=== PATIENT | male | born 1975 | race Caucasian/White ===

== ENCOUNTER 2019-01-18 19:07 | Emergency (ER) | payer OTHER ==
[~2019-01-18] VITALS: Ht 177.8 cm; Wt 87.1 kg
[2019-01-18] MEDS ORDERED: BACTRIM DS TAB1 EACH PO ×2 (19:22)
[2019-01-18 19:59] LABS: ABSOLUTE EOSINOPHILS 0.1 thou/uL (0.0-0.7); ABSOLUTE LYMPHOCYTES 1.1 thou/uL (0.8-5.3); ABSOLUTE MONOCYTES 0.4 thou/uL (0.0-1.2); BASOPHILS 0.6 %; EOSINOPHILS 1.9 %; HEMATOCRIT 38.8 % (42.0-52.0); HEMOGLOBIN 12.8 gm/dL (14.0-18.0); LYMPHOCYTES 29.9 %; MCHC 33.1 g/dL (28.0-37.0); MCV 81.5 fL (80.0-100.0); MONOCYTES 11.9 %; MPV 7.2 fl. (7.2-11.1); NUCLEATED RBCS 0 /100WBC; PLATELET COUNT* 156 thou/uL (150-400); POLYS 55.7 %; RBC 4.76 mil/uL (4.50-6.00); RDW-CV 14.3 % (10.5-14.5); WBC 3.5 thou/uL (4.0-11.0)
[2019-01-18 20:09] LABS: PROTIME 10.7 Seconds (9.20-11.50)
[2019-01-18 20:12] LABS: ANION GAP 12 mmol/L (7-16); BUN 12 mg/dL (7-18); CALCIUM 8.3 mg/dL (8.5-10.1); CHLORIDE 96 mmol/L (98-107); CO2 23 mmol/L (21-32); CREATININE 1.2 mg/dL (0.6-1.3); GLUCOSE 79 mg/dL (70-99); POTASSIUM 4.6 mmol/L (3.5-5.1); SODIUM 131 mmol/L (136-145)
[2019-01-18 20:19] LABS: ALKALINE PHOSPHATASE 61 U/L (46-116); LIPASE 150 U/L (73-393); NT-PRO BRAIN NAT PEPTIDE 39 pg/mL (<300); SGOT 38 U/L (15-37); SGPT 18 U/L (30-65); TOTAL BILIRUBIN 0.6 mg/dL (<0.1-1.0); TOTAL PROTEIN 9.3 g/dL (6.4-8.2); TROPONIN-I LEVEL <0.06 ng/mL (<0.06)
[2019-01-18 20:58] LABS: URINE BLOOD NEGATIVE (Negative); URINE CLARITY CLEAR; URINE COLOR YELLOW; URINE GLUCOSE-RANDOM NEGATIVE (Negative); URINE LEUKOCYTES-REFLEX NEGATIVE (Negative); URINE NITRITE-REFLEX NEGATIVE (Negative); URINE PROTEIN TRACE (Negative); URINE SPECIFIC GRAVITY >= 1.030 (1.005-1.030)
[2019-01-18 21:01] LABS: URINE BILIRUBIN 2+ (Negative); URINE KETONES 3+ (Negative)
[2019-01-18 21:13] LABS: AMP/METHAMP POSITIVE (Negative); BARBITURATES Negative (Negative); BENZODIAZEPINES Negative (Negative); COCAINE Negative (Negative); METHADONE Negative (Negative); OPIATES Negative (Negative); PCP Negative (Negative); THC Negative (Negative)
[2019-01-18] MEDS ORDERED: ATENOLOL 50MG T50 MG PO ×2 (21:36)
[2019-01-18] MEDS ORDERED: METHIMAZOLE10 MG PO (21:36)
[2019-01-18 21:38] LABS: ICTOTEST (BILI CONFIRMATORY) Negative (Negative)
[2019-01-18 22:49] VITALS: BP 109/66
--- NOTE | 2019-01-19 16:49 | EKG ---
[place] [address] ELECTROCARDIOGRAM REPORT Name: RASHAUN DIMAS [id number] Admission: 01/18/19 Attend Phys: Discharge: 01/18/19 Date of : 77 Report #: [id number] THIS REPORT FOR: //name// [facility] ED Test Date: 2019-01-18 Test Time: 20:16:46 Pat Name: RASHAUN DIMAS Department: Room: Gender: M [employer]: : 1975 Requested By: Yeni Modi Order Number: [id number] MD: Jean Pierre Bautista Measurements Intervals [place] Rate: 104 P: 53 [place]: 134 QRS: 49 QRSD: 96 T: 23 QT: 328 QTc: 432 Interpretive Statements Sinus tachycardia ST elev, probable normal early repol pattern No previous ECG available for comparison Electronically Signed On 01-19-2019 16:49:03 CDT by Jean Pierre Bautista [email or web address] <ELECTRONICALLY SIGNED> By: Jean Pierre Bautista MD, [facility] 01/19/19 1649 15 15 Jean Pierre Bautista MD, FACC /EPI
[2019-01-23] MEDS ORDERED: HYDROXYZINE HCL25 M2 PO
== END 2019-01-18 23:25 | disposition home or self-care (01) ==
LOC: M.ERS 19:07
PROVIDERS: Emergency Medicine
DX: E03.9 Hypothyroidism, unspecified (principal); R11.2 Nausea with vomiting, unspecified; Z79.899 Other long term (current) drug therapy

== ENCOUNTER 2019-01-21 21:19 | Emergency (ER) | payer OTHER ==
[~2019-01-21] VITALS: Ht 177.8 cm; Wt 87.5 kg
[~2019-01-21 21:19] MED LIST: ATENOLOL 50MG T50 MG PO; BACTRIM DS TAB1 EACH PO; METHIMAZOLE10 MG PO
[2019-01-21 21:45] LABS: HEMATOCRIT 37.9 % (42.0-52.0); HEMOGLOBIN 12.3 gm/dL (14.0-18.0); MCH 26.5 pg (26.0-34.0); MCHC 32.4 g/dL (28.0-37.0); MCV 81.9 fL (80.0-100.0); MPV 7.6 fl. (7.2-11.1); NUCLEATED RBCS 0 /100WBC; PLATELET COUNT* 154 thou/uL (150-400); RBC 4.63 mil/uL (4.50-6.00); RDW-CV 14.1 % (10.5-14.5); WBC 4.3 thou/uL (4.0-11.0)
[2019-01-21 21:53] LABS: ANION GAP 10 mmol/L (7-16); BUN 13 mg/dL (7-18); CHLORIDE 96 mmol/L (98-107); CO2 28 mmol/L (21-32); CREATININE 1.2 mg/dL (0.6-1.3); GLUCOSE 103 mg/dL (70-99); POTASSIUM 3.5 mmol/L (3.5-5.1); SODIUM 134 mmol/L (136-145)
[2019-01-21 22:04] LABS: ALBUMIN 2.7 g/dL (3.4-5.0); ALKALINE PHOSPHATASE 54 U/L (46-116); NT-PRO BRAIN NAT PEPTIDE 232 pg/mL (<300); SGOT 53 U/L (15-37); SGPT 32 U/L (30-65); TOTAL BILIRUBIN 0.6 mg/dL (<0.1-1.0); TOTAL PROTEIN 8.6 g/dL (6.4-8.2); TROPONIN-I LEVEL <0.06 ng/mL (<0.06)
[2019-01-21 22:09] LABS: ABSOLUTE LYMPHOCYTES 1.3 thou/uL (0.8-5.3); ABSOLUTE NEUTROPHILS 2.9 thou/uL (1.6-8.1)
[2019-01-21 22:10] LABS: PLATELET ESTIMATE ADEQUATE
[2019-01-21 22:28] LABS: URINE BLOOD NEGATIVE (Negative); URINE CLARITY CLEAR; URINE COLOR YELLOW; URINE GLUCOSE-RANDOM NEGATIVE (Negative); URINE KETONES TRACE (Negative); URINE LEUKOCYTES-REFLEX NEGATIVE (Negative); URINE NITRITE-REFLEX NEGATIVE (Negative); URINE PROTEIN 1+ (Negative); URINE SPECIFIC GRAVITY 1.025 (1.005-1.030)
[2019-01-21 22:30] LABS: ICTOTEST (BILI CONFIRMATORY) Negative (Negative); URINE BILIRUBIN 2+ (Negative)
[2019-01-21 22:40] LABS: AMP/METHAMP Negative (Negative); BARBITURATES Negative (Negative); BENZODIAZEPINES Negative (Negative); COCAINE Negative (Negative); METHADONE Negative (Negative); OPIATES Negative (Negative); PCP Negative (Negative); THC Negative (Negative)
[2019-01-22] MEDS ORDERED: MEDROL DOSPAK21 TA1 PO (00:30)
[2019-01-22 02:12] VITALS: BP 95/50
--- NOTE | 2019-01-22 11:23 | EKG ---
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 : 1975 Requested By: Eveline Mendoza Order Number: [id number] MD: Arturo Dunn Measurements Intervals [place] Rate: 97 P: 43 [place]: 140 QRS: 51 QRSD: 95 T: 37 QT: 394 QTc: 501 Interpretive Statements Sinus rhythm Prolonged QT interval Compared to ECG 01/18/2019 20:16:46 Prolonged QT interval now present Sinus tachycardia no longer present ST (T wave) deviation no longer present Electronically Signed On 01-22-2019 11:23:33 CDT by Arturo Dunn [email or web address] <ELECTRONICALLY SIGNED> By: Arturo Dunn MD, [facility] 01/22/19 [id number] 33 Arturo Dunn MD, [facility] /EPI
[2019-01-23] MEDS ORDERED: HYDROXYZINE HCL25 M2 PO
== END 2019-01-22 01:35 | disposition left against medical advice (07) ==
LOC: M.ERS 21:19
PROVIDERS: Nurse Practitioner Family
DX: I95.9 Hypotension, unspecified (principal); T78.40XA Allergy, unspecified, initial encounter; E03.9 Hypothyroidism, unspecified

== ENCOUNTER 2019-01-23 21:29 | Emergency (ER) | payer OTHER ==
[~2019-01-23] VITALS: Ht 177.8 cm; Wt 87.1 kg
[~2019-01-23 21:29] MED LIST changes: +HYDROXYZINE HCL25 M2 PO; +MEDROL DOSPAK21 TA1 PO
[2019-01-24 00:47] VITALS: BP 120/72
== END 2019-01-24 00:42 | disposition home or self-care (01) ==
LOC: M.ERS 21:29
DX: L29.9 Pruritus, unspecified (principal); E03.9 Hypothyroidism, unspecified

== ENCOUNTER 2020-03-01 19:18 | Emergency (ER) | payer SELFPAY ==
[~2020-03-01] VITALS: Ht 177.8 cm; Wt 99.8 kg
[~2020-03-01 19:18] MED LIST changes: +ZOFRAN ODT4 MG DISSOLVE
[2020-03-01 21:21] LABS: URINE BILIRUBIN NEGATIVE (Negative); URINE BLOOD 3+ (Negative); URINE CLARITY CLEAR; URINE COLOR YELLOW; URINE GLUCOSE-RANDOM NEGATIVE (Negative); URINE KETONES 1+ (Negative); URINE LEUKOCYTES-REFLEX NEGATIVE (Negative); URINE NITRITE-REFLEX NEGATIVE (Negative); URINE PROTEIN TRACE (Negative); URINE UROBILINOGEN 0.2 E.U./dl (0.2-1.0)
[2020-03-01 21:33] LABS: AMP/METHAMP POSITIVE (Negative); BARBITURATES Negative (Negative); BENZODIAZEPINES Negative (Negative); COCAINE Negative (Negative); METHADONE Negative (Negative); OPIATES Negative (Negative); PCP Negative (Negative); THC Negative (Negative)
[2020-03-01 21:38] LABS: CRYSTALS None Seen /LPF (None Seen); HYALINE CASTS 0-3 Few /LPF (None Seen); MUCUS 0-3 Light strn/LPF (None Seen); SQUAMOUS 0-3 Few /LPF (0-3)
[2020-03-01 21:39] LABS: BACTERIA-REFLEX 1-9 Few /HPF (None Seen); URINE RBC 3-10 Few /HPF (0-2); URINE WBC-REFLEX 0-5 Rare /HPF (0-5)
[2020-03-01] MEDS ORDERED: HYDROCODON-ACE1 EAC8 PO (21:46)
[2020-03-01] MEDS ORDERED: FLOMAX0.4 MG PO (21:46)
[2020-03-01 21:55] VITALS: BP 144/101
== END 2020-03-01 21:56 | disposition home or self-care (01) ==
LOC: M.ERS 19:18
PROVIDERS: Emergency Medicine
DX: N20.0 Calculus of kidney (principal); R07.89 Other chest pain; E03.9 Hypothyroidism, unspecified; Z79.899 Other long term (current) drug therapy

== ENCOUNTER 2021-09-28 15:29 | Emergency (ER) | payer MEDICAID ==
[~2021-09-28] VITALS: Ht 177.8 cm; Wt 113.4 kg
[~2021-09-28 15:29] MED LIST changes: +FLOMAX0.4 MG PO; +HYDROCODON-ACE1 EAC8 PO
[2021-09-28 16:27] LABS: ABSOLUTE EOSINOPHILS 0.1 thou/uL (0.0-0.7); ABSOLUTE LYMPHOCYTES 2.2 thou/uL (0.8-5.3); ABSOLUTE MONOCYTES 0.9 thou/uL (0.0-1.2); ABSOLUTE NEUTROPHILS 12.2 thou/uL (1.6-8.1); BASOPHILS 0.3 %; EOSINOPHILS 0.4 %; HEMATOCRIT 53.6 % (42.0-52.0); HEMOGLOBIN 17.8 gm/dL (14.0-18.0); LYMPHOCYTES 14.6 %; MCH 29.7 pg (26.0-34.0); MCHC 33.3 g/dL (28.0-37.0); MCV 89.4 fL (80.0-100.0); MONOCYTES 5.6 %; MPV 7.4 fl. (7.2-11.1); NUCLEATED RBCS 0 /100WBC; PLATELET COUNT* 288 thou/uL (150-400); POLYS 79.1 %; RDW-CV 14.7 % (10.5-14.5); WBC 15.4 thou/uL (4.0-11.0)
[2021-09-28 16:32] LABS: CALCIUM 9.9 mg/dL (8.5-10.1); CREATININE 1.7 mg/dL (0.6-1.3)
[2021-09-28 16:33] LABS: POTASSIUM 4.2 mmol/L (3.5-5.1)
[2021-09-28 16:36] LABS: ALBUMIN 4.3 g/dL (3.4-5.0); TOTAL BILIRUBIN 0.6 mg/dL (<0.1-1.0); TOTAL PROTEIN 9.8 g/dL (6.4-8.2)
[2021-09-28] MEDS ORDERED: AMOX TR-K CLV1 EAC4 PO (17:39)
[2021-09-28 17:44] VITALS: BP 119/62
--- NOTE | 2021-09-29 09:28 | EKG ---
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 : 1975 Requested By: Lori Blancas Order Number: [id number] MD: Isac Martin Measurements Intervals [place] Rate: 114 P: 48 [place]: 140 QRS: 40 QRSD: 101 T: 42 QT: 351 QTc: 484 Interpretive Statements Sinus tachycardia Ventricular premature complex Probable left atrial enlargement Borderline prolonged QT interval Baseline wander in lead(s) V2 Compared to ECG 01/21/2019 21:34:21 Ventricular premature complex(es) now present Sinus rate has increased Electronically Signed On 09-29-2021 9:28:28 MACHINE LEATH[employer]IMMER by Isac Martin [email or web address] <ELECTRONICALLY SIGNED> By: Isac Martin MD, [facility] 09/29/21 0928 1605 1605 Isac Martin MD, [facility] /EPI
== END 2021-09-28 17:44 | disposition left against medical advice (07) ==
LOC: M.ERS 15:29
PROVIDERS: Student in an Organized Health Care Education/Training Program
DX: R11.2 Nausea with vomiting, unspecified (principal); E03.9 Hypothyroidism, unspecified; Z91.09 Other allergy status, other than to drugs and biological substances